=== PATIENT | female | born 1965 | race American Indian/Alaskan Native ===

== ENCOUNTER 2021-10-08 23:17 | Emergency (ER) | payer BC ==
[2021-10-08 23:46] VITALS: BP 142/80
--- NOTE | 2021-10-09 01:26 | Event Note ---
ED Screening Note Date of service: 10/09/21 Time: :24 ED Screening Note: Patient is a 55-year-old -[place] female with a history of morbid obesity who presented to the ED with complaint of acute onset persistent left- sided chest pain for the last 3 days. Patient states that the symptoms have been persistent and constant and that it feels like pressure on her left chest wall. Patient states that she has been taking [id number]-hjj-pgthtal antacid with no relief. Patient also complains of left and left leg tingling sensations. Patient denies dizziness, syncope, cough, shortness of breath, nausea and vomiting, fever, chills, headache or neck pain. This initial assessment/diagnostic orders/clinical plan/treatment(s) is/are subject to change based on patients health status, clinical progression and re- assessment by fellow clinical providers in the ED. Further treatment and workup at subsequent clinical providers discretion. Patient/guardian urged not to elope from the ED as their condition may be serious if not clinically assessed and managed. Initial orders include: EKG, CBC, CMP, troponin, BNP, chest x-ray
[2021-10-09 02:30] LABS: Basophils % (Auto) 0.5 % (0.0-1.8); Eosinophils # (Auto) 0.1 K/mm3 (0.0-0.4); Eosinophils % (Auto) 1.9 % (0.0-4.3); Hematocrit 38.3 % (30.3-42.9); Hemoglobin 12.6 gm/dl (10.1-14.3); Lymphocytes # (Auto) 2.9 K/mm3 (1.2-5.4); Lymphocytes % (Auto) 44.1 % (13.4-35.0); Mean Corpuscular HGB Conc 33 % (30-34); Mean Corpuscular Volume 88 fl (79-97); Monocytes # (Auto) 0.6 K/mm3 (0.0-0.8); Monocytes % (Auto) 8.9 % (0.0-7.3); Platelet Count 332 K/mm3 (140-440); Red Blood Count 4.35 M/mm3 (3.65-5.03); Red Cell Distribution Width 14.5 % (13.2-15.2)
--- NOTE | 2021-10-09 02:41 | XRay Report ---
CHEST 1 VIEW 10/09/2021 1:23 AM INDICATION / CLINICAL INFORMATION: chest pain. COMPARISON: None available. FINDINGS: SUPPORT DEVICES: None. HEART / MEDIASTINUM: No significant abnormality. LUNGS / PLEURA: No significant pulmonary or pleural abnormality. No pneumothorax. ADDITIONAL FINDINGS: No significant additional findings. IMPRESSION: 1. No acute findings. Signer Name: Asuncion Cohen MD Signed: 10/09/2021 2:36 AM Workstation Name: [id number]
[2021-10-09 02:57] LABS: Alanine Aminotransferase 49 units/L (7-56); Albumin 4.4 g/dL (3.9-5); BUN/Creatinine Ratio 8; Blood Urea Nitrogen 8 mg/dL (7-17); Calcium 9.5 mg/dL (8.4-10.2); Hemolysis Index 0
--- NOTE | 2021-10-09 04:41 | Emergency Department Report ---
ED Chest Pain HPI - General Chief Complaint: Chest Pain Stated Complaint: CHEST PAIN Time Seen by Provider: 10/09/21 01:23 Source: patient Mode of arrival: Ambulatory Limitations: No Limitations - History of Present Illness Initial Comments: Patient is a 55-year-old -[place] female with a history of morbid obesity who presented to the ED with complaint of acute onset persistent left- sided chest pain which she describes as pressure-like and tightness. Patient also complains of left arm tingling sensation and neck pain as well as low back pain that radiates to the left leg with tingling sensation. Patient denies dizziness, syncope, fever, chills, cough, nausea and vomiting, diaphoresis, fall, heavy lifting, headache, change in vision, abdominal pain or upper and lower extremity weakness. MD Complaint: chest pain (Left-sided chest pain; left arm tingling sensation;), other (Neck pain and left leg tingling sensation) -: Sudden, days(s) (3) Onset: during rest Pain Location: left chest Pain Radiation: LUE Severity: mild Severity scale (0 -10): 1 Quality: tightness, pressure Consistency: constant Improves With: nothing Worsens With: nothing re: denies: nausea, vomting, diaphoresis, dyspnea, sense of impending doom, other Other Symptoms: denies: cough, fever, syncope, rash, acid taste in mouth, leg swelling, palpitations, burping Treatments Prior to Arrival: none - Related Data On Oral Contraceptives: No Previous Rx's Medication Instructions Recorded Last Taken Type Acetaminophen [Tylenol] 500 mg PO Q6HR PRN #40 tablet 10/09/21 Unknown Rx Gabapentin 300 mg PO Q12H #30 cap 10/09/21 Unknown Rx Allergies Allergy/AdvReac Type Severity Reaction Status Date / Time ibuprofen [From Motrin] AdvReac Vomiting Verified 10/08/21 23:42 Heart Score - HEART Score History: Slightly suspicious EKG: Normal Age: 45-65 Risk factors: No known risk factors Troponin: < normal limit HEART Score: 1 - EKG Read Time Time EKG Completed: 23:25 EKG Read Time: 23:30 - Critical Actions Critical Actions: 0-3 pts:0.9-1.7%risk of adverse cardiac event.Candidate for discharge ED Review of Systems ROS: Stated complaint: CHEST PAIN Other details as noted in HPI Constitutional: denies: chills, fever, malaise Eyes: denies: eye pain, eye discharge, vision change ENT: denies: ear pain, throat pain Respiratory: denies: cough, shortness of breath, wheezing Cardiovascular: chest pain (Left-sided chest pressure and pain). denies: p alpitations Endocrine: no symptoms reported Gastrointestinal: denies: abdominal pain, nausea, vomiting, diarrhea Genitourinary: denies: urgency, dysuria, frequency, hematuria, discharge Musculoskeletal: denies: back pain, joint swelling, arthralgia Skin: denies: rash, lesions Neurological: denies: headache, weakness, paresthesias Psychiatric: denies: anxiety, depression Hematological/Lymphatic: denies: easy bleeding, easy bruising ED Past Medical Hx - Past Medical History Previous Medical History?: No - Surgical History Past Surgical History?: No - Medications Home Medications: Home Medications Medication Instructions Recorded Confirmed Last Taken Type Acetaminophen [Tylenol] 500 mg PO Q6HR PRN #40 tablet 10/09/21 Unknown Rx Gabapentin 300 mg PO Q12H #30 cap 10/09/21 Unknown Rx ED Physical Exam - General Limitations: No Limitations General appearance: alert, in no apparent distress - Head Head exam: Present: atraumatic, normocephalic, normal inspection - Eye Eye exam: Present: normal appearance, PERRL, EOMI Pupils: Present: normal accommodation - ENT ENT exam: Present: normal exam, normal orophraynx, mucous membranes moist, TM's normal bilaterally, normal external ear exam - Neck Neck exam: Present: normal inspection, full ROM - Respiratory Respiratory exam: Present: normal lung sounds bilaterally, chest wall tenderness (Palpable reproducible mild left chest wall tenderness). Absent: respiratory distress, wheezes, rales, rhonchi, accessory muscle use, decreased breath sounds - Cardiovascular Cardiovascular Exam: Present: regular rate, normal rhythm, normal heart sounds. Absent: systolic murmur, diastolic murmur, rubs, gallop - GI/Abdominal GI/Abdominal exam: Present: soft, normal bowel sounds. Absent: tenderness, g uarding, rebound, hyperactive bowel sounds, hypoactive bowel sounds, organomegaly - Extremities Exam Extremities exam: Present: normal inspection, full ROM, normal capillary refill - Back Exam Back exam: Present: normal inspection, full ROM. Absent: tenderness, CVA tenderness (R), CVA tenderness (L), muscle spasm, paraspinal tenderness, vertebral tenderness - Neurological Exam Neurological exam: Present: alert, oriented X3, CN II-XII intact, normal gait, reflexes normal - Psychiatric Psychiatric exam: Present: normal affect, normal mood - Skin Skin exam: Present: warm, dry, intact, normal color. Absent: rash ED Course Vital Signs 10/08/21 10/09/21 23:45 05:17 Temperature 98.5 F Pulse Rate 94 H 90 Respiratory 18 20 Rate Blood Pressure 142/80 O2 Sat by Pulse 99 98 Oximetry ELIO score - Elio Score Age > 65: (0) No Aspirin use within the Past 7 Days: (0) No 3 or more CAD Risk Factors: (0) No 2 or more Angina events in past 24 hrs: (0) No Known CAD with more than 50% Stenosis: (0) No Elevated Cardiac Markers: (0) No ST Deviation Greater than 0.5mm: (0) No ELIO Score: 0 ED Medical Decision Making - Lab Data Result diagrams: 10/09/21 01:59 10/09/21 01:59 - EKG Data EKG shows normal: sinus rhythm Rate: normal - EKG Data Interpretation: normal EKG 10/09/21 05:29 The EKG shows normal sinus rhythm with a ventricular rate of [address] or T wave abnormalities. - Radiology Data Radiology results: report reviewed, image reviewed [address] [address] XRay Report Signed Patient: ROBEL DE LEON MR#: [id number] : 1965 Acct:[id number] Age/Sex: 55 / F ADM Date: 10/08/21 Loc: ED Attending Dr: Ordering Physician: EVONNE MENESES Date of Service: 10/09/21 Procedure(s): XR chest 1V ap Accession Number(s): [id number] cc: EVONNE MENESES Fluoro Time In Minutes: CHEST 1 VIEW 10/09/2021 1:23 AM INDICATION / CLINICAL INFORMATION: chest pain. COMPARISON: None available. FINDINGS: SUPPORT DEVICES: None. HEART / MEDIASTINUM: No significant abnormality. LUNGS / PLEURA: No significant pulmonary or pleural abnormality. No pneumothorax. ADDITIONAL FINDINGS: No significant additional findings. IMPRESSION: 1. No acute findings. Signer Name: Asuncion Cohen MD Signed: 10/09/2021 2:36 AM Workstation Name: [id number] Transcribed By: DT Dictated By: Dann Cohen MD Electronically Authenticated By: Dann Cohen MD Signed Date/Time: 10/09/21235 DD/ 5 TD/TT: - Medical Decision Making This is a 55-year-old -[place] female with a history of morbid obesity who presented to the ED with complaint of acute onset persistent left-sided chest pain which she describes as pressure-like and tightness. Patient also complains of left arm tingling sensation and neck pain as well as low back pain that radiates to the left leg with tingling sensation. In the ED, patient is alert and oriented x3 and is not in any distress. EKG shows normal sinus rhythm with a ventricular rate of [address] or T wave abnormalities. Chest x- ray showed no acute cardiopulmonary abnormalities or pneumonitis. Based on the history and physical exam findings, the patient's heart score is 1 and she is PERC negative per Wells criteria. Based on the history and physical exam findings, lab test results and imaging reports, patient symptoms are likely musculoskeletal versus cervical radiculopathy and lumbar radiculopathy. Patient was discharged home on medications and advised to follow-up with her primary care physician in 5 to 7 days for reevaluation or return to the ED immediately if symptoms get worse. - Differential Diagnosis Radiculopathy; ACS; PE; pneumonia; costochondritis; Critical care attestation.: If time is entered above; I have spent that time in minutes in the direct care of this critically ill patient, excluding procedure time. ED Disposition Clinical Impression: Acute nonspecific chest pain with low risk of coronary artery disease, Cervical radiculopathy, Muscle strain of anterior chest wall Disposition: HOME / SELF CARE / HOMELESS Is pt being admited?: No Does the pt Need Aspirin: No Condition: Stable Instructions: Muscle Cramps and Spasms, [id number], Muscle Strain, [id number], Nonspecific Chest Pain, Adult, [id number], Cervical Radiculopathy, [id number], Chest Pain (ED) Additional Instructions: The EKG showed normal sinus rhythm with no ST or T wave abnormalities. Chest x- ray showed no acute cardiopulmonary abnormalities. Lab test results showed no acute abnormalities. Your symptoms are likely musculoskeletal and you have no risk factors for cardiac disease apart your weight. Therefore take medications with food, drink plenty of fluids and follow up with your primary care physician in 7-10 days for reevaluation. Return to the ED immediately fi symptoms get w orse. Prescriptions: Acetaminophen [Tylenol] 500 mg PO Q6HR PRN #40 tablet PRN Reason: Pain , Severe (7-10) Gabapentin 300 mg PO Q12H #30 cap Referrals: AIDEE HOLBROOK MD [Primary Care Provider] - 3-5 Days Forms: Work/School Release Form(ED) Time of Disposition: 04:47 Print Language: CHINESE
== END 2021-10-09 05:22 | disposition home or self-care (01) ==
LOC: ED 23:17
DX: R07.9 Chest pain, unspecified (principal); M54.12 Radiculopathy, cervical region; S29.011A Strain of muscle and tendon of front wall of thorax, initial encounter; X58.XXXA Exposure to other specified factors, initial encounter; Y93.89 Activity, other specified; Y92.89 Other specified places as the place of occurrence of the external cause; Y99.8 Other external cause status
CPT/HCPCS: 36415; 71045; 80053; 83880; 84484; 85025; 93005; 99283